=== PATIENT | female | born 1990 | race Caucasian/White ===

== ENCOUNTER 2017-01-27 23:50 | Emergency (ER) | payer OTHER ==
[~2017-01-27] VITALS: Ht 162.6 cm; Wt 76.9 kg
[2017-01-28 00:31] LABS: HEMATOCRIT 35.4 % (36.0-46.0); MCH 27.5 PG (29.0-34.0); MCHC 33.6 G/DL (30.0-36.0); MCV 81.8 FL (83-99); MEAN PLAT.VOLUME 9.3 uM^3 (9.5-12.4); PLATELET COUNT 322 K/uL (156-360); RBC DIS.WIDTH-CV 12.3 % (11.8-14.6); RBC DIS.WIDTH-SD 36.6 % (39-53); RED BLOOD COUNT 4.33 M/uL (3.80-5.20); WHITE BLOOD COUNT 12.2 K/uL (4.1-10.2)
[2017-01-28 00:45] LABS: CHLORIDE 104 mEq/L (99-109); POTASSIUM 3.7 mEq/L (3.7-5.4); SODIUM 137 mEq/L (136-147)
[2017-01-28 00:47] LABS: GLUCOSE 86 mg/dL (70-99)
[2017-01-28 00:48] LABS: ANION GAP 13 MEQ/L (2-14)
[2017-01-28 00:49] LABS: TOTAL BILIRUBIN 0.3 mg/dL (0.0-1.0)
[2017-01-28 00:50] LABS: ALKALINE PHOSPHATASE 57 IU/L (3-129)
[2017-01-28 00:51] LABS: GFR ESTIMATE (CALCULATED) > 59 mL/min/
[2017-01-28 00:52] LABS: UREA NITROGEN (BUN) 8 mg/dL (9-23)
[2017-01-28 01:16] LABS: ADD MIUA? YES; BILIRUBIN NEGATIVE; BLOOD NEGATIVE; COLOR AMBER ((YELLOW)); GLUCOSE (STRIP) NEGATIVE; KETONES 80; LEUKOCYTES SMALL; NITRITE NEGATIVE; PROTEIN (STRIP) 30; SPECIFIC GRAVITY 1.029 (1.000-1.030)
[2017-01-28 01:21] LABS: QUANTITATIVE HCG 16553.4 MIU/ML
[2017-01-28 01:38] LABS: BACTERIA 2+ /HPF; CASTS NONE SEEN /LPF; CRYSTALS NONE SEEN; EPITHELIAL CELLS 3+ /HPF; MUCUS NONE SEEN /LPF; RED BLOOD CELLS NONE SEEN /HPF (0-5); UCUL ADDED? YES; WHITE BLOOD CELLS 0-5 /HPF (0-5)
[2017-01-28 03:04] VITALS: BP 118/70
== END 2017-01-28 03:04 | disposition home or self-care (01) ==
LOC: EME 23:50
DX: O21.2 Late vomiting of pregnancy (principal); O99.282 Endocrine, nutritional and metabolic diseases complicating pregnancy, second trimester; E86.0 Dehydration; O99.89 Other specified diseases and conditions complicating pregnancy, childbirth and the puerperium; R19.7 Diarrhea, unspecified; O99.332 Smoking (tobacco) complicating pregnancy, second trimester; F17.200 Nicotine dependence, unspecified, uncomplicated; Z3A.24 24 weeks gestation of pregnancy
CPT/HCPCS: 80053; 81003; 84702; 85027; 87086; 99281; 99284; J2405; J7030

== ENCOUNTER 2017-05-12 02:30 | Outpatient (CLI) | payer OTHER ==
[~2017-05-12] VITALS: Ht 162.6 cm; Wt 80.7 kg
== END 2017-05-12 04:45 | disposition home or self-care (01) ==
LOC: LDRP-OP 02:30 → 2WEST 02:31 → LDRP-OP 06-14 13:21
DX: O47.1 False labor at or after 37 completed weeks of gestation (principal); Z3A.39 39 weeks gestation of pregnancy
CPT/HCPCS: 59025; G0378

== ENCOUNTER 2017-05-12 14:17 | Outpatient (CLI) | payer OTHER ==
[2017-05-12] VITALS (11 sets, daily range): BP systolic 111–146; BP diastolic 72–95
== END 2017-05-12 21:45 | disposition home or self-care (01) ==
LOC: LDRP-OP 14:17 → 2WEST 14:18 → LDRP-OP 06-14 05:53
DX: O47.1 False labor at or after 37 completed weeks of gestation (principal); Z3A.00 Weeks of gestation of pregnancy not specified
CPT/HCPCS: 59025; G0378; J2270; J2550

== ENCOUNTER 2017-05-13 00:18 | Inpatient (IN) | payer OTHER ==
[2017-05-13] VITALS (25 sets, daily range): BP systolic 105–179; BP diastolic 56–113
[2017-05-13 01:28] LABS: BASOPHIL (%) 0.2 % (0-1); EOSINOPHIL (%) 0.1 % (0-5); HEMATOCRIT 33.8 % (36.0-46.0); HEMOGLOBIN 11.7 G/DL (11.9-15.5); IMMATURE GRANULOCYTE (%) 0.6 % (0.0-0.7); LYMPHOCYTE (%) 9.2 % (15-42); LYMPHOCYTE COUNT 1.8 K/uL (1.0-2.8); MCH 27.5 PG (29.0-34.0); MCHC 34.6 G/DL (30.0-36.0); MCV 79.5 FL (83-99); MONOCYTE (%) 4.3 % (3-12); MONOCYTE COUNT 0.8 K/uL (0-0.8); NEUTROPHIL (%) 85.6 % (45-76); NEUTROPHIL COUNT 16.5 K/uL (1.8-6.4); PLATELET COUNT 294 K/uL (156-360); RBC DIS.WIDTH-CV 12.8 % (11.8-14.6); RBC DIS.WIDTH-SD 36.7 % (39-53); RED BLOOD COUNT 4.25 M/uL (3.80-5.20); WHITE BLOOD COUNT 19.3 K/uL (4.1-10.2)
[2017-05-14 07:33] VITALS: BP 125/86
[2017-05-14] MEDS ORDERED: IBUPROFEN800 MG PO (09:53)
[2017-05-14 14:47] VITALS: BP 127/82
[2017-05-14 23:18] VITALS: BP 122/77
[2017-05-15 06:40] VITALS: BP 114/81
== END 2017-05-15 11:32 | disposition home or self-care (01) | DRG 775 ==
LOC: LDRP-OP 00:18 → 2WEST 00:19 → LDRP-OP 06-14 21:48
PROVIDERS: Advanced Practice Midwife
PROC: 00HU33Z Insertion of Infusion Device into Spinal Canal, Percutaneous Approach (ICD-10-PCS; principal; 2017-05-13)
PROC: 10E0XZZ Delivery of Products of Conception, External Approach (ICD-10-PCS; principal; 2017-05-13)
PROC: 3E0R3BZ Introduction of Anesthetic Agent into Spinal Canal, Percutaneous Approach (ICD-10-PCS; principal; 2017-05-13)
DX: O99.210 Obesity complicating pregnancy, unspecified trimester (principal); E66.9 Obesity, unspecified; Z68.30 Body mass index [BMI] 30.0-30.9, adult; Z3A.39 39 weeks gestation of pregnancy; Z37.0 Single live birth
CPT/HCPCS: 59025; 85025; C1755; G0378; J2270; J2550; J3010; J7120